=== PATIENT | female | born 1945 | race Caucasian/White ===

== ENCOUNTER → 2020-08-14 | Outpatient (CLI) | payer MEDICARE ==
[~2020-08-14] MED LIST: ASPIRIN EC81 MG PO; ATORVASTATIN CA20 MG PO; CALCIUM-MAGNES1 EAC3 PO; CLOPIDOGREL75 MG PO; COLCHICINE0.6 M1 PO; FISH OIL EC 1,1 EACH PO; LOTENSIN10 MG PO; NORVASC 5 MG TAB5 MG PO; PROTONIX40 MG PO; TOPROL XL100 MG PO; TRAMADOL HCL50 MG PO; ULORIC 40 MG TA40 MG PO
== END ==
LOC: EXRD 08:21
DX: I65.22 Occlusion and stenosis of left carotid artery (principal)
CPT/HCPCS: 93880

== ENCOUNTER → 2020-09-01 | Outpatient (CLI) | payer MEDICARE | LOC: HEART 5 14:43 | DX: I45.9 Conduction disorder, unspecified (principal) ==

== ENCOUNTER → 2021-08-13 | Outpatient (CLI) | payer MEDICARE | LOC: EXRD 06-29 13:00 | DX: I65.22 Occlusion and stenosis of left carotid artery (principal); Z98.890 Other specified postprocedural states; Z86.73 Personal history of transient ischemic attack (TIA), and cerebral infarction without residual deficits | CPT/HCPCS: 93880 ==